=== PATIENT | female | born 1930 | race African-American/Black ===

== ENCOUNTER 2017-10-03 16:57 | Inpatient (IN) | payer MEDICARE ==
[~2017-10-03] VITALS: Ht 157.5 cm; Wt 56.0 kg
--- NOTE | ~2017-10-03 | HP ---
PATIENT: SILVINO OLVERA MEDICAL RECORD: [id number] ACCOUNT: [id number] LOCATION:[address] : [birth year] ADMISSION DATE: 10/04/17 HISTORY AND PHYSICAL EXAMINATION CHIEF COMPLAINT: Edema. HISTORY OF PRESENT ILLNESS: An 87-year-old black female patient of mine presents today in clinic for routine followup of lower extremity edema and constipation. She is currently taking MiraLax, Amitiza, and mineral oil for her constipation. She has a colostomy. In addition, she is not on any diuretics at the time for her chronic lower extremity edema. Also with a history of hypertension, GERD and anemia. On exam today as listened to her heart was out of rhythm, got an EKG showing atrial fibrillation. She has a history of chronic iron deficiency anemia, at one time has been referred to Dr. Lozano for IV iron. Right now states that she is only doing oral iron, very poor historian, but hemoglobin was 7.2 in clinic today and with the new onset AFib, the patient will be admitted to the hospital for further workup. REVIEW OF SYSTEMS: Positive for abdominal pain, constipation, generalized weakness, fatigue, muscle aches, arthralgia and dry skin, otherwise negative. PHYSICAL EXAMINATION: CONSTITUTIONAL: No acute distress. HEENT: Normocephalic and atraumatic. NECK: Supple. LUNGS: Clear to auscultation bilaterally. CARDIOVASCULAR: Irregular rhythm. ABDOMEN: Soft, nontender to palpation, has colostomy. MUSCULOSKELETAL: 1+ edema in bilateral lower extremities. NEUROLOGIC: Awake, alert, oriented times 3. PAST MEDICAL HISTORY: Arrhythmia, anemia, constipation, GERD, hypertension and osteoarthritis. PAST SURGICAL HISTORY: Hernia repair, colostomy and colon resection in 2013. MEDICATIONS: Ferrous sulfate 325 mg a day, Flomax 0.4 mg a day, lisinopril 10 mg a day, mineral oil as needed, MiraLax as needed, Pepcid 40 mg b.i.d. and Trulance 3 mg a day started today. ALLERGIES: OXYBUTYNIN. FAMILY HISTORY: Mother and father both with hypertension. SOCIAL HISTORY: Lives with family, nonsmoker and nondrinker. DIAGNOSTICS: EKG showing atrial fibrillation. CBC showing a hemoglobin of 7.2. PLAN: We will admit the patient to the hospital, transfuse blood, consult cardiology for atrial fibrillation, may need to consult Hematology/Oncology to restart IV iron. Other orders as written on chart. TRANSINT:[id number] Voice Confirmation ID: [id number] DOCUMENT ID: [id number] HISTORY AND PHYSICAL [id number] SILVINO OLVERA HUNTER MD at 1807 CC: [id number] DICTATION DATE: 10/03/17 1700 HOTBED LEVER OPERATOR: 10/03/17 1725 DIS IN 10/13/17 [id number] [place] [id number]
[~2017-10-03 16:57] MED LIST: ASCORBIC ACID500 MG PO; CYCLOBENZAPRINE5 MG PO; DULCOLAX10 MG/SUPP RC; FISH OIL 1,0001 CA1 PO; HYDROCHLOROTH12.5 M1 PO; HYDROCODON-ACE1 EAC7 PO; LASIX20 MG PO; MIRALAX17 GM PO; MULTIVITAMINS W PO; POTASSIUM CHLO10 ME1 PO; PRINIVIL20 MG PO; PROTONIX40 MG PO
[2017-10-03 17:44] VITALS: BP 137/79; BMI 22.0
[2017-10-03 20:00] VITALS: BP 155/81
[2017-10-03 20:01] LABS: BASOPHILS 0.3 % (0-2); EOSINOPHILS 1.9 % (0-7); HEMATOCRIT 25.8 % (36.0-48.0); HEMOGLOBIN 7.6 g/dL (12-16); IMMATURE GRANULOCYTES 0.2 % (0-5); LYMPHOCYTES 31.5 % (15-50); MCH 20.9 pg (26.0-34.0); MCHC 29.5 g/dL (31.0-37.0); MCV 70.9 fL (80.0-100.0); MEAN PLATELET VOLUME 10.4 fL (7.4-10.4); NEUTROPHILS 56.1 % (40-80); RBC 3.64 10x6/uL (4.00-5.40); WBC 5.8 10x3/uL (4.8-10.8)
[2017-10-03 20:08] LABS: PLATELET COUNT 346 10x3/uL (130-400)
[2017-10-03 20:19] LABS: % SATURATION 3 % (15-55); IRON 15 ug/dl (35-150); TOTAL IRON BIND CAPACITY 444 ug/dl (260-445); UNSAT IRON BIND CAPACITY 429 ug/dl (150-375)
[2017-10-03 20:32] LABS: ALBUMIN 3.4 g/dL (3.4-5.0); BILIRUBIN - TOTAL 0.31 mg/dL (0.2-1.3); CALCIUM 8.7 mg/dL (8.5-10.1); CARBON DIOXIDE 25.8 mmol/L (21.0-32.0); POTASSIUM - SERUM 3.8 mmol/L (3.5-5.1); PROTEIN - SERUM 7.3 g/dL (6.4-8.2)
[2017-10-04 04:00] VITALS: BP 160/87
[2017-10-04 06:42] LABS: BASOPHILS 0.3 % (0-2); EOSINOPHILS 2.3 % (0-7); HEMATOCRIT 29.8 % (36.0-48.0); IMMATURE GRANULOCYTES 0.2 % (0-5); LYMPHOCYTES 26.4 % (15-50); MCH 22.6 pg (26.0-34.0); MCHC 31.2 g/dL (31.0-37.0); MCV 72.3 fL (80.0-100.0); MEAN PLATELET VOLUME 9.6 fL (7.4-10.4); MONOCYTES 12.5 % (2-11); NEUTROPHILS 58.3 % (40-80); PLATELET COUNT 310 10x3/uL (130-400); RBC 4.12 10x6/uL (4.00-5.40); RDW 18.2 % (11.5-14.5); WBC 6.4 10x3/uL (4.8-10.8)
[2017-10-04 06:43] LABS: HEMOGLOBIN 9.3 g/dL (12-16)
[2017-10-04 08:25] VITALS: BP 163/81
[2017-10-04 09:16] VITALS: BMI 21.9
[2017-10-04 12:28] VITALS: BP 149/77
[2017-10-04 18:47] VITALS: BP 134/78
[2017-10-04 20:00] VITALS: BP 134/74
[2017-10-05] VITALS (7 sets, daily range): BP systolic 113–160; BP diastolic 68–82; Ht 157.5 cm; Wt 56.0 kg
[2017-10-05 08:18] LABS: FOLATE (FOLIC ACID) - SERUM >20.0 ng/mL (>3.0)
[2017-10-06 02:33] VITALS: BP 158/74
[2017-10-06 06:02] VITALS: BP 128/82
[2017-10-06 08:14] VITALS: BP 135/75
[2017-10-06 11:29] VITALS: BP 130/72
[2017-10-06 15:16] VITALS: BP 136/78
[2017-10-06 17:16] LABS: BASOPHILS 0.4 % (0-2); EOSINOPHILS 3.2 % (0-7); HEMATOCRIT 29.9 % (36.0-48.0); HEMOGLOBIN 9.1 g/dL (12-16); IMMATURE GRANULOCYTES 0.2 % (0-5); LYMPHOCYTES 28.9 % (15-50); MCH 22.5 pg (26.0-34.0); MCHC 30.4 g/dL (31.0-37.0); MEAN PLATELET VOLUME 10.4 fL (7.4-10.4); MONOCYTES 14.8 % (2-11); NEUTROPHILS 52.5 % (40-80); PLATELET COUNT 290 10x3/uL (130-400); RBC 4.04 10x6/uL (4.00-5.40); RDW 19.4 % (11.5-14.5)
[2017-10-06 17:26] LABS: ANION GAP 15.4 mmol/L (8-16); CALCIUM 8.3 mg/dL (8.5-10.1); CARBON DIOXIDE 22.5 mmol/L (21.0-32.0); CREATININE - SERUM 1.1 mg/dL (0.6-1.3); POTASSIUM - SERUM 3.9 mmol/L (3.5-5.1)
[2017-10-06 22:47] VITALS: BP 147/79
[2017-10-07 05:36] LABS: BASOPHILS 0.2 % (0-2); EOSINOPHILS 2.9 % (0-7); HEMATOCRIT 29.5 % (36.0-48.0); HEMOGLOBIN 8.9 g/dL (12-16); IMMATURE GRANULOCYTES 0.3 % (0-5); LYMPHOCYTES 25.5 % (15-50); MCH 22.3 pg (26.0-34.0); MCHC 30.2 g/dL (31.0-37.0); MCV 73.9 fL (80.0-100.0); MEAN PLATELET VOLUME 10.5 fL (7.4-10.4); MONOCYTES 13.6 % (2-11); NEUTROPHILS 57.5 % (40-80); PLATELET COUNT 286 10x3/uL (130-400); RBC 3.99 10x6/uL (4.00-5.40); RDW 20.3 % (11.5-14.5); WBC 5.9 10x3/uL (4.8-10.8)
[2017-10-07 05:48] LABS: ANION GAP 12.8 mmol/L (8-16); CALCIUM 8.3 mg/dL (8.5-10.1); CARBON DIOXIDE 25.1 mmol/L (21.0-32.0); CREATININE - SERUM 1.1 mg/dL (0.6-1.3); POTASSIUM - SERUM 3.9 mmol/L (3.5-5.1)
[2017-10-07 06:39] VITALS: BP 129/71
[2017-10-07 08:27] VITALS: BP 145/78
[2017-10-07 10:58] VITALS: BP 130/64
[2017-10-07 14:46] VITALS: BP 138/77
[2017-10-07 19:00] VITALS: BP 173/84
[2017-10-08 04:00] VITALS: BP 172/94
[2017-10-08 05:41] LABS: BASOPHILS 0.5 % (0-2); EOSINOPHILS 3.7 % (0-7); HEMATOCRIT 31.5 % (36.0-48.0); HEMOGLOBIN 9.5 g/dL (12-16); IMMATURE GRANULOCYTES 0.2 % (0-5); LYMPHOCYTES 25.9 % (15-50); MCH 22.5 pg (26.0-34.0); MCHC 30.2 g/dL (31.0-37.0); MCV 74.5 fL (80.0-100.0); MEAN PLATELET VOLUME 10.5 fL (7.4-10.4); MONOCYTES 11.3 % (2-11); NEUTROPHILS 58.4 % (40-80); PLATELET COUNT 319 10x3/uL (130-400); RBC 4.23 10x6/uL (4.00-5.40); RDW 21.4 % (11.5-14.5); WBC 6.4 10x3/uL (4.8-10.8)
[2017-10-08 05:58] LABS: ANION GAP 16.5 mmol/L (8-16); CALCIUM 8.9 mg/dL (8.5-10.1); CARBON DIOXIDE 23.4 mmol/L (21.0-32.0); POTASSIUM - SERUM 3.9 mmol/L (3.5-5.1)
[2017-10-08 09:03] VITALS: BP 149/90
[2017-10-08 11:55] VITALS: BP 144/85
[2017-10-08 16:00] VITALS: BP 174/93
[2017-10-08 21:44] VITALS: BP 173/89
[2017-10-09 00:30] VITALS: BP 181/90
[2017-10-09 04:30] VITALS: BP 163/86
[2017-10-09 05:18] LABS: BASOPHILS 0.2 % (0-2); EOSINOPHILS 4.5 % (0-7); HEMATOCRIT 29.3 % (36.0-48.0); HEMOGLOBIN 9.1 g/dL (12-16); IMMATURE GRANULOCYTES 0.2 % (0-5); LYMPHOCYTES 24.3 % (15-50); MCH 23.1 pg (26.0-34.0); MCHC 31.1 g/dL (31.0-37.0); MCV 74.4 fL (80.0-100.0); MEAN PLATELET VOLUME 10.4 fL (7.4-10.4); MONOCYTES 12.1 % (2-11); NEUTROPHILS 58.7 % (40-80); PLATELET COUNT 287 10x3/uL (130-400); RBC 3.94 10x6/uL (4.00-5.40); RDW 21.5 % (11.5-14.5); WBC 5.1 10x3/uL (4.8-10.8)
[2017-10-09 05:24] LABS: ANION GAP 13.2 mmol/L (8-16); CALCIUM 8.3 mg/dL (8.5-10.1); CARBON DIOXIDE 25.5 mmol/L (21.0-32.0); CREATININE - SERUM 0.9 mg/dL (0.6-1.3); POTASSIUM - SERUM 3.7 mmol/L (3.5-5.1)
[2017-10-09 09:21] VITALS: BP 179/86
[2017-10-09 13:50] VITALS: BP 140/60
[2017-10-09 16:59] VITALS: BP 149/77
[2017-10-09 20:30] VITALS: BP 168/93
[2017-10-10 00:30] VITALS: BP 168/86
[2017-10-10 04:30] VITALS: BP 163/85
[2017-10-10 05:27] LABS: BASOPHILS 0.1 % (0-2); HEMATOCRIT 29.3 % (36.0-48.0); HEMOGLOBIN 8.8 g/dL (12-16); IMMATURE GRANULOCYTES 0.4 % (0-5); LYMPHOCYTES 13.4 % (15-50); MCH 22.4 pg (26.0-34.0); MCV 74.6 fL (80.0-100.0); MEAN PLATELET VOLUME 10.5 fL (7.4-10.4); MONOCYTES 8.9 % (2-11); NEUTROPHILS 74.2 % (40-80); PLATELET COUNT 279 10x3/uL (130-400); RBC 3.93 10x6/uL (4.00-5.40)
[2017-10-10 05:29] LABS: ANION GAP 13.2 mmol/L (8-16); CALCIUM 8.3 mg/dL (8.5-10.1); CARBON DIOXIDE 24.3 mmol/L (21.0-32.0); CREATININE - SERUM 0.9 mg/dL (0.6-1.3); POTASSIUM - SERUM 3.5 mmol/L (3.5-5.1); WBC 8.5 10x3/uL (4.8-10.8)
[2017-10-10 08:34] VITALS: BP 157/81
[2017-10-10 11:39] VITALS: BP 144/71
[2017-10-10 16:20] VITALS: BP 152/89
[2017-10-10 21:00] VITALS: BP 146/88
[2017-10-11 00:24] VITALS: BP 157/80
[2017-10-11 05:31] VITALS: BP 136/78
[2017-10-11 06:23] LABS: BASOPHILS 0.1 % (0-2); EOSINOPHILS 3.1 % (0-7); HEMATOCRIT 27.5 % (36.0-48.0); HEMOGLOBIN 8.3 g/dL (12-16); IMMATURE GRANULOCYTES 0.3 % (0-5); LYMPHOCYTES 19.2 % (15-50); MCH 22.4 pg (26.0-34.0); MCHC 30.2 g/dL (31.0-37.0); MCV 74.3 fL (80.0-100.0); MEAN PLATELET VOLUME 9.9 fL (7.4-10.4); MONOCYTES 11.5 % (2-11); NEUTROPHILS 65.8 % (40-80); PLATELET COUNT 243 10x3/uL (130-400); RDW 22.5 % (11.5-14.5); WBC 6.9 10x3/uL (4.8-10.8)
[2017-10-11 06:31] LABS: ANION GAP 13.9 mmol/L (8-16); CALCIUM 8.5 mg/dL (8.5-10.1); CARBON DIOXIDE 25.6 mmol/L (21.0-32.0); CREATININE - SERUM 0.9 mg/dL (0.6-1.3); POTASSIUM - SERUM 3.5 mmol/L (3.5-5.1)
[2017-10-11 08:00] VITALS: BP 152/77
[2017-10-11 11:49] VITALS: BP 147/87
[2017-10-11 15:11] VITALS: BP 172/98
[2017-10-12 06:19] LABS: BASOPHILS 0.1 % (0-2); EOSINOPHILS 3.9 % (0-7); HEMOGLOBIN 9.1 g/dL (12-16); IMMATURE GRANULOCYTES 0.3 % (0-5); LYMPHOCYTES 15.3 % (15-50); MCH 22.9 pg (26.0-34.0); MCHC 30.3 g/dL (31.0-37.0); MCV 75.6 fL (80.0-100.0); MEAN PLATELET VOLUME 11.3 fL (7.4-10.4); MONOCYTES 11.3 % (2-11); NEUTROPHILS 69.1 % (40-80); PLATELET COUNT 256 10x3/uL (130-400); RBC 3.97 10x6/uL (4.00-5.40); RDW 23.3 % (11.5-14.5); WBC 6.9 10x3/uL (4.8-10.8)
[2017-10-12 06:29] LABS: CALCIUM 8.8 mg/dL (8.5-10.1); CARBON DIOXIDE 23.8 mmol/L (21.0-32.0); CREATININE - SERUM 0.8 mg/dL (0.6-1.3); POTASSIUM - SERUM 3.8 mmol/L (3.5-5.1)
[2017-10-12 10:52] VITALS: BP 149/72
[2017-10-12 13:17] VITALS: BP 140/70
[2017-10-12 16:25] VITALS: BP 164/86
[2017-10-12 20:00] VITALS: BP 148/72
[2017-10-13 04:00] VITALS: BP 156/81
[2017-10-13 05:42] LABS: BASOPHILS 0.4 % (0-2); EOSINOPHILS 2.6 % (0-7); HEMATOCRIT 32.4 % (36.0-48.0); HEMOGLOBIN 9.8 g/dL (12-16); IMMATURE GRANULOCYTES 0.3 % (0-5); LYMPHOCYTES 17.6 % (15-50); MCH 22.8 pg (26.0-34.0); MCHC 30.2 g/dL (31.0-37.0); MCV 75.5 fL (80.0-100.0); MEAN PLATELET VOLUME 10.6 fL (7.4-10.4); MONOCYTES 10.6 % (2-11); NEUTROPHILS 68.5 % (40-80); PLATELET COUNT 241 10x3/uL (130-400); RBC 4.29 10x6/uL (4.00-5.40); RDW 24.1 % (11.5-14.5); WBC 7.4 10x3/uL (4.8-10.8)
[2017-10-13 06:18] LABS: ANION GAP 14.2 mmol/L (8-16); CALCIUM 8.7 mg/dL (8.5-10.1); CARBON DIOXIDE 25.9 mmol/L (21.0-32.0); POTASSIUM - SERUM 4.1 mmol/L (3.5-5.1)
[2017-10-13 08:34] VITALS: BP 142/73
== END 2017-10-13 15:25 | disposition home health service (06) | DRG 812 ==
LOC: OBSVTIME 16:57 → UNDOADMIN 16:57 → D.M2 16:57
PROVIDERS: Family Medicine; Family Medicine Adult Medicine; Internal Medicine Nephrology
DX: D50.0 Iron deficiency anemia secondary to blood loss (chronic) (principal); I48.91 Unspecified atrial fibrillation; K59.09 Other constipation; I10 Essential (primary) hypertension; K21.9 Gastro-esophageal reflux disease without esophagitis; E78.5 Hyperlipidemia, unspecified; I08.1 Rheumatic disorders of both mitral and tricuspid valves; R19.5 Other fecal abnormalities